=== PATIENT | female | born 1995 | race Hispanic/Latino ===

== ENCOUNTER → 2016-09-27 | Outpatient (CLI) | payer MEDICAID | LOC: LAB 14:52 | PROVIDERS: ATTEND Obstetrics & Gynecology | DX: Z33.1 Pregnant state, incidental (principal) | CPT/HCPCS: 36415; 81511 ==

== ENCOUNTER → 2016-11-02 | Outpatient (CLI) | payer MEDICAID ==
[2016-11-02 09:04] LABS: BASOPHILS % (AUTO) 0 % (0-2); EOSINOPHILS % (AUTO) 1 % (0-4); LYMPHOCYTES # (AUTO) 1.3 X10^3; MEAN CORPUSCULAR VOLUME 92 FL (80-100); MEAN PLATELET VOLUME 9.7 FL (6.0-9.5); MONOCYTES # (AUTO) 0.6 X10^3; MONOCYTES % (AUTO) 7 % (3-11); NEUTROPHILS # (AUTO) 6.4 X10^3; NEUTROPHILS % (AUTO) 76 % (51-67); PLATELET COUNT 274 10^3uL (150-450); WHITE BLOOD COUNT 8.48 10^3uL (4.0-11.0)
[2016-11-02 09:12] LABS: MEAN CORPUSCULAR HEMOGLOBIN 31.3 PG (26.0-34.0)
== END ==
LOC: LAB 11-01 08:51
PROVIDERS: ATTEND Obstetrics & Gynecology
DX: Z34.02 Encounter for supervision of normal first pregnancy, second trimester (principal); G40.B09 Juvenile myoclonic epilepsy, not intractable, without status epilepticus
CPT/HCPCS: 36415; 82947; 82950; 85025

== ENCOUNTER → 2016-11-24 | Outpatient (CLI) | payer MEDICAID ==
--- NOTE | 2016-11-24 18:02 | Diagnostic Imaging Report ---
INDICATION: Recent seizure with vaginal bleeding. EXAMINATION: OB ultrasound. FINDINGS: The cervix is nondilated, measuring a maximal 2.6 cm in length. The os is closed. No funneling. Martinez gestation is in cephalic position. The posterior placenta is eccentric to the right. There is no abruption or previa. Amniotic fluid index is 13.5, normal. The biometrical measurements correlate with an average age of 29 weeks and 5 days. Sonographic date of confinement is 02/14/17. IMPRESSION: 2.6 cm nondilated cervix, cephalic positioning, measuring 29 weeks 5 days. TECHNIQUE: Multiple real-time grayscale images were obtained over the gravid uterus. COMPARISON: None FINDINGS: Biometrical measurements are as follows: Biparietal cm, age weeks days. Head circumference cm, age weeks days. Abdominal circumference cm, age weeks days. Femur length cm, age weeks days. Sonographic estimate age: weeks days. Sonographic estimated date of delivery: . Estimated Weight: gm (+/- gm). LMP percentile: %. heart rate: beats per minute. number: of . IMPRESSION: Dictated by: Dictated on workstation # [id number]
== END ==
LOC: RAD 15:02
PROVIDERS: ATTEND Obstetrics & Gynecology
DX: O09.893 Supervision of other high risk pregnancies, third trimester (principal); G40.B09 Juvenile myoclonic epilepsy, not intractable, without status epilepticus; Z3A.29 29 weeks gestation of pregnancy
CPT/HCPCS: 76805